=== PATIENT | male | born 1980 | race Hispanic/Latino ===

== ENCOUNTER 2019-10-21 14:07 | Emergency (ER) | payer SELFPAY ==
--- NOTE | 2019-10-21 14:56 | EDPHYS ---
Physician Documentation [facility] Name: John Thompson Age: 39 yrs Sex: Male : 1980 Arrival Date: 10/21/2019 Time: 14:09 Bed 2 Private MD: ED Physician Damien Maldonado HPI: 10/20 14:32 This 39 yrs old Male presents to ER via Wheelchair with complaints of cp Laceration To Head. 14:32 The laceration(s) is(are) located on the frontal scalp area. Onset: The cp symptoms/episode began/occurred today. Associated signs and symptoms: Pertinent negatives: heavy bleeding, loss of consciousness. Patient reports he was using restroom and went to stand up, struck head on clothing hook attached to door. No reported LOC. Historical: - Allergies: 14:27 No Known Allergies; ph - PMHx: 14:27 None; ph - Immunization history:: Adult Immunizations unknown. - Social history:: Smoking status: Patient denies any tobacco usage or history of. ROS: 14:34 Eyes: Negative for injury, pain, redness, and discharge. cp 14:34 Constitutional: Negative for body aches, chills, fever. 14:34 Neck: Negative for pain with movement, pain at rest, stiffness, bony tenderness. 14:34 Abdomen/GI: Positive for nausea, Negative for vomiting. 14:34 Skin: Positive for laceration(s), of the frontal scalp area. 14:34 Neuro: Positive for headache, Negative for altered mental status, loss of consciousness. 14:34 All other systems are negative. Exam: 14:35 Constitutional: The patient appears in no acute distress, alert, awake, well developed, cp well nourished. 14:35 Head/face: Noted is a laceration(s), that is linear, of the top of head, swelling, that is mild, of the top of head, tenderness, that is mild, of the top of head. 14:35 Neck: C-spine: vertebral tenderness, is not appreciated, crepitus, is not appreciated, ROM/movement: is normal, is supple, without pain, no range of motions limitations. 14:35 Chest/axilla: Inspection: normal, Palpation: is normal, no crepitus, no tenderness. cp 14:35 Cardiovascular: Rate: normal. cp 14:35 Respiratory: the patient does not display signs of respiratory distress, Respirations: normal, no use of accessory muscles, labored breathing, is not present. 14:35 Abdomen/GI: Exam negative for discomfort, distension, guarding, Inspection: abdomen appears normal. 14:35 Neuro: Orientation: to person, place \T\ time. Mentation: is normal, Motor: moves all fours, strength is normal, Gait: is steady. Vital Signs: 14:24 BP 134 / 78; Pulse 88; Resp 18; Temp 97.8; Pulse Ox 99% on R/A; Weight 83.91 kg; Height ph 5 ft. 8 in. (172.72 cm); Pain 5/10; 15:15 BP 127 / 86; Pulse 81; Resp 18; Temp 97.9; Pulse Ox 98% on R/A; ph 14:24 Body Mass Index 28.13 (83.91 kg, 172.72 cm) ph MDM: 14:27 Patient medically screened. cp 15:50 Refusal of service: The patient/guardian displays adequate decision making capability cp and despite a detailed discussion of alternatives, benefits, risks, and consequences refuses: sutures or day at this time. 15:50 Differential diagnosis: superficial laceration, intracranial bleed, concussion. Data cp reviewed: vital signs, nurses notes, and as a result, I will discharge patient. 10/20 14:32 Order name: Wound dressing; Complete Time: 15:24 cp Administered Medications: 15:04 Drug: Tylenol 650 mg Route: PO; ph 15:04 Drug: Zofran (Ondansetron) 4 mg Route: PO; ph Disposition: 15:15 Chart complete. cp 15:59 Co-signature as Attending Physician, Damien Maldonado MD I agree with the assessment and kdr plan of care. Disposition: 10/21/19 14:56 Discharged to Home. Impression: Laceration without foreign body of scalp. - Condition is Stable. - Discharge Instructions: Head Injury, Adult, Nonsutured Laceration Care. - Work release form, Medication Reconciliation Form, Thank You Letter, Antibiotic Education, Prescription Opioid Use form. - Follow up: Private Physician; When: 1 - 2 days; Reason: Worsening of condition. - Problem is new. - Symptoms have improved. Signatures: Damien Maldonado MD MD kdr Nicole Gutierrez RN RN ph Vidya, Dominguez, PA PA cp Elise Martin, NANCY RN hb Corrections: (The following items were deleted from the chart) 15:27 14:56 10/21/2019 14:56 Discharged to Home. Impression: Laceration without foreign body hb of scalp. Condition is Stable. Forms are Medication Reconciliation Form, Thank You Letter, Antibiotic Education, Prescription Opioid Use. Follow up: Private Physician; When: 1 - 2 days; Reason: Worsening of condition. Problem is new. Symptoms have improved. cp
--- NOTE | 2019-10-21 14:56 | ER ---
Nurse's Notes [facility] Name: John Thompson Age: 39 yrs Sex: Male : 1980 Arrival Date: 10/21/2019 Time: 14:09 Bed 2 Private MD: Diagnosis: Laceration without foreign body of scalp Presentation: 10/20 14:24 Chief complaint: Patient states: I was in a restroom stall and when I stood up to pull ph up my pants I hit my head on the hook on door." Reports laceration to L frontal area, dressing in place w/ no bleeding noted, denies LOC, reports slight dizziness, headache, and sensitivity to light. Coronavirus screen: Client denies travel out of the [place] in the last 14 days. At this time, the client does not indicate any symptoms associated with coronavirus-19. Ebola Screen: No symptoms or risks identified at this time. Complicating Factors: There are no complicating factors for this patient. Initial Sepsis Screen: Does the patient meet any 2 criteria? No. Patient's initial sepsis screen is negative. Does the patient have a suspected source of infection? No. Patient's initial sepsis screen is negative. Risk Assessment: Do you want to hurt yourself or someone else? Patient reports no desire to harm self or others. Onset of symptoms was October 21, 2019. 14:24 Method Of Arrival: Wheelchair ph 14:24 Acuity: SAMUEL 4 ph Historical: - Allergies: 14:27 No Known Allergies; ph - PMHx: 14:27 None; ph - Immunization history:: Adult Immunizations unknown. - Social history:: Smoking status: Patient denies any tobacco usage or history of. Screenin:27 Abuse screen: Denies threats or abuse. Denies injuries from another. Nutritional ph screening: No deficits noted. Tuberculosis screening: No symptoms or risk factors identified. Fall Risk None identified. Assessment: 14:30 General: Appears in no apparent distress. comfortable, well groomed, Behavior is calm, ph cooperative, appropriate for age. Pain: Complains of pain in top of head. Neuro: Level of Consciousness is awake, alert, obeys commands, Oriented to person, place, time, situation, Reports headache photophobia Denies weakness blurred vision. Cardiovascular: Capillary refill < 3 seconds in bilateral fingers Patient's skin is warm and dry. Respiratory: Airway is patent Respiratory effort is even, unlabored. GI: Reports nausea, Patient currently denies vomiting. Derm: Skin is healthy with good turgor, Skin is pink, warm \\T\\ dry. Musculoskeletal: Circulation, motion, and sensation intact. Range of motion: intact in all extremities. Injury Description: Laceration sustained to top of head is clean, superficial, 0.5 to 2.5 cm long, not bleeding. 14:50 Reassessment: Pt currently refusing day or sutures, states, " I just can't handle ph that. I've had a cut on my head before and I didn't get day or anything then and I just kept it clean and put medicine on it.". Vital Signs: 14:24 BP 134 / 78; Pulse 88; Resp 18; Temp 97.8; Pulse Ox 99% on R/A; Weight 83.91 kg; Height ph 5 ft. 8 in. (172.72 cm); Pain 5/10; 15:15 BP 127 / 86; Pulse 81; Resp 18; Temp 97.9; Pulse Ox 98% on R/A; ph 14:24 Body Mass Index 28.13 (83.91 kg, 172.72 cm) ph ED Course: 14:09 Patient arrived in ED. mr 14:24 Nicole Gutierrez, NANCY is Primary Nurse. ph 14:26 Dominguez Dasilva PA is PHCP. cp 14:26 Damien Maldonado MD is Attending Physician. cp 14:27 Triage completed. ph 14:27 Arm band placed on Patient placed in an exam room, on a stretcher. ph 14:28 Patient has correct armband on for positive identification. Bed in low position. Call ph light in reach. Side rails up X 1. Pulse ox on. NIBP on. Door closed. Noise minimized. 15:10 Wound care: to laceration located on top of head was cleaned with Betadine, dressed ph with Neosporin, 4X4s, Kerlix, Patient tolerated well. 15:24 No provider procedures requiring assistance completed. Patient did not have IV access hb during this emergency room visit. Administered Medications: 15:04 Drug: Tylenol 650 mg Route: PO; ph 15:04 Drug: Zofran (Ondansetron) 4 mg Route: PO; ph Outcome: 14:56 Discharge ordered by . cp 15:24 Discharged to home ambulatory. hb 15:24 Condition: stable 15:24 Discharge instructions given to patient, Instructed on discharge instructions, follow up and referral plans. wound care, Demonstrated understanding of instructions, follow-up care, medications, wound care. 15:27 Patient left the ED. hb Signatures: Aleyda Florez mr Nicole Gutierrez RN RN Dominguez Abbasi PA PA cp Baxter, Heather, RN RN hb
[2019-10-21] MEDS ORDERED: ACETAMINOPHEN 325 MG TABLET ONE (15:09)
[2019-10-21] MEDS ORDERED: ONDANSETRON 4 MG (ODT) TAB ONE (15:11)
[2019-10-26 00:51] VITALS: BP 134/78; TEMP 97.8; O2SAT 99
== END 2019-10-21 15:27 | disposition home or self-care (01) ==
LOC: ER 14:07
DX: S01.01XA Laceration without foreign body of scalp, initial encounter (principal); W22.8XXA Striking against or struck by other objects, initial encounter; Y93.89 Activity, other specified; Y92.9 Unspecified place or not applicable; Z53.20 Procedure and treatment not carried out because of patient's decision for unspecified reasons
CPT/HCPCS: 99283